=== PATIENT | male | born 1955 | race Caucasian/White ===

== ENCOUNTER 2017-12-19 02:16 | Day surgery (SDC) | payer OTHER ==
[~2017-12-19] VITALS: Ht 177.8 cm; Wt 110.0 kg
[~2017-12-19 02:16] MED LIST: ASPI81CH PO; Bisoprolol Fumar5 MG PO; FAMO20 PO; FISH OIL + D31 EACH PO; L-ARGININE500 MG PO; LIVALO2 MG PO; NORPACE PO; TAMS.4ER PO
== END 2017-12-19 11:15 | disposition home or self-care (01) ==
LOC: MHTC 02:16
PROC: 4A023N7 Measurement of Cardiac Sampling and Pressure, Left Heart, Percutaneous Approach (ICD-10-PCS; principal; 2017-12-19)
PROC: B211YZZ Fluoroscopy of Multiple Coronary Arteries using Other Contrast (ICD-10-PCS; principal; 2017-12-19)
DX: I42.1 Obstructive hypertrophic cardiomyopathy (principal); I48.0 Paroxysmal atrial fibrillation; E78.00 Pure hypercholesterolemia, unspecified; E78.5 Hyperlipidemia, unspecified; I12.9 Hypertensive chronic kidney disease with stage 1 through stage 4 chronic kidney disease, or unspecified chronic kidney disease; N18.9 Chronic kidney disease, unspecified
CPT/HCPCS: 93458; 99152; 99153; C1769; C1894; J1644; J2250; J3010; J7030; Q9967

== ENCOUNTER 2018-05-21 09:23 | Day surgery (SDC) | payer OTHER ==
[~2018-05-21] VITALS: Ht 182.9 cm; Wt 103.9 kg
== END 2018-05-21 12:23 | disposition home or self-care (01) ==
LOC: ORSCSDS 09:23
PROVIDERS: Internal Medicine Gastroenterology
PROC: 0DBK8ZX Excision of Ascending Colon, Via Natural or Artificial Opening Endoscopic, Diagnostic (ICD-10-PCS; principal; 2018-05-21 11:00)
DX: R19.4 Change in bowel habit (principal); K59.00 Constipation, unspecified; K63.5 Polyp of colon; K57.30 Diverticulosis of large intestine without perforation or abscess without bleeding; I48.91 Unspecified atrial fibrillation; I25.2 Old myocardial infarction; K21.9 Gastro-esophageal reflux disease without esophagitis; I12.9 Hypertensive chronic kidney disease with stage 1 through stage 4 chronic kidney disease, or unspecified chronic kidney disease; N18.9 Chronic kidney disease, unspecified; Z79.899 Other long term (current) drug therapy
CPT/HCPCS: 88305; J2405; J7120